=== PATIENT | male | born 1955 ===

== ENCOUNTER → 2021-01-09 | Day surgery (SDC) | payer OTHER ==
[~2021-01-09] MED LIST: ATORVASTATIN CA20 MG PO; COZAAR100 MG PO; DERMOPLAST PAIN78 GM TOP; ECOTRIN325 M1 PO; LEVO-T88 MCG PO; METFORMIN HCL500 M4 PO; NAPROXEN500 MG PO; NEURONTIN300 MG PO; PERCOCET 5-3251 EACH PO
== END | disposition home or self-care (01) ==
LOC: ADM 01-04 08:30 → CIR.AMB 04:00
PROVIDERS: ATTEND Surgery
DX: K60.1 Chronic anal fissure (principal); K64.8 Other hemorrhoids; Z20.822 Contact with and (suspected) exposure to COVID-19